=== PATIENT | female | born 1975 | race Hispanic/Latino ===

== ENCOUNTER 2018-07-21 11:36 | Observation (INO) | payer OTHER ==
[~2018-07-21] VITALS: Ht 160 cm; Wt 112.0 kg
[2018-07-21 12:25] LABS: BILIRUBIN,URINE Negative (NEGATIVE); COLOR,URINE Yellow (YELLOW); GLUCOSE, URINE (UA) Negative (NEGATIVE); KETONES,URINE Trace mg/dL (NEGATIVE); LEUKOCYTE ESTERASE ,URINE Negative (NEGATIVE); NITRATE,URINE Negative (NEGATIVE); OCCULT BLOOD,URINE Negative (NEGATIVE); PH,URINE 6.5 (5.0-8.0); PROTEIN,URINE Negative (NEGATIVE)
[2018-07-21 12:29] LABS: APPEARANCE,URINE SLIGHTLY CLOUDY (CLEAR)
[2018-07-21] MEDS ORDERED: LACTATED RINGERS 1000ML IV SCH (13:30)
[2018-07-21] MEDS ORDERED: TERBUTALINE SULFATE VIAL 1MG/ML SQ ONE (13:40)
[2018-07-21] MEDS ORDERED: TERBUTALINE SULFATE VIAL 1MG/ML SQ PRN (13:45)
[2018-07-21] MEDS ORDERED: LACTATED RINGERS 1000ML 1,000 ML IV SCH (13:45)
== END 2018-07-21 14:41 | disposition home or self-care (01) ==
LOC: EDBD 11:36 → LDH 11:36
PROVIDERS: ADMIT Obstetrics & Gynecology; ATTEND Obstetrics & Gynecology
DX: O26.893 Other specified pregnancy related conditions, third trimester (principal); R10.9 Unspecified abdominal pain; O99.613 Diseases of the digestive system complicating pregnancy, third trimester; K59.00 Constipation, unspecified; Z3A.35 35 weeks gestation of pregnancy
CPT/HCPCS: 81003; G0378 ×4; J3105; J7120; 96360